=== PATIENT | female | born 2000 | race Caucasian/White ===

== ENCOUNTER 2021-02-14 14:28 | Emergency (ER) | payer MEDICAID ==
[~2021-02-14] VITALS: Ht 172.7 cm; Wt 79.4 kg
--- NOTE | 2021-02-14 14:55 | NUR ---
[id number], PER EMS PT WAS NOTED "ALTERED" BY STAFF. 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 DENIES DRUG USE. STATED, "LAST DRUG TAKEN WAS METH LAST MONTH." PATIENT IS A/OX4, DENIES SOB AND PAIN, C/O GENERALIZED WEAKNESS. PASSED NURSING BEDSIDE SWALLOW, NIH SCORE OF 0. WILL CONTINUE TO MONITOR.
[2021-02-14 15:58] LABS: BASOPHILS # (AUTO) 0.1 /CMM (0.0-0.2); BASOPHILS % (AUTO) 0.8 % (0.0-2.0); EOSINOPHILS % (AUTO) 2.2 % (0.0-6.0); HEMATOCRIT 41 % (33-45); HEMOGLOBIN 13.2 g/dL (11.5-14.8); LYMPHOCYTES # (AUTO) 2.9 /CMM (0.8-4.8); LYMPHOCYTES % (AUTO) 30.3 % (20.0-44.0); MEAN CORPUSCULAR HGB CONC 32 g/dl (31.0-36.0); MEAN CORPUSCULAR VOLUME 89 fL (82-100); MONOCYTES # (AUTO) 0.8 /CMM (0.1-1.30); MONOCYTES % (AUTO) 8.8 % (2.0-12.0); NEUTROPHILS # (AUTO) 5.5 /CMM (1.8-8.9); NEUTROPHILS % (AUTO) 57.9 % (43.0-81.0); PLATELET COUNT (AUTO) 309 /CMM (150-450); RED BLOOD CELL COUNT(AUTO) 4.58 MIL/uL (4.0-5.2); WHITE BLOOD COUNT (AUTO) 9.5 K/uL (4.3-11.0)
--- NOTE | 2021-02-14 16:04 | NUR ---
URINE AND WET MOUNT SENT TO LAB
[2021-02-14 16:11] LABS: BILIRUBIN,URINE NEGATIVE (NEGATIVE); COLOR,URINE YELLOW (YELLOW); LEUKOCYTE ESTERASE ,URINE SMALL (NEGATIVE); NITRITE, URINE NEGATIVE (NEGATIVE); PROTEIN,URINE NEGATIVE (NEGATIVE); UGLUCOSE NEGATIVE (NEGATIVE); UROBILINOGEN,URINE 0.2 EU/dL (0.2)
[2021-02-14 16:19] LABS: BACTERIA,URINE 1+ /HPF (None Seen); RBC,URINE 51-80 /HPF (0-2)
--- NOTE | 2021-02-14 16:35 | NUR ---
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
[2021-02-14 16:36] LABS: ALBUMIN 3.5 g/dL (3.4-5.0); BILIRUBIN,DIRECT 0.1 mg/dL (0.0-0.2); BILIRUBIN,TOTAL 0.3 mg/dL (0.2-1.0); CALCIUM, SERUM 9.3 mg/dL (8.5-10.1); CREATININE 0.7 mg/dL (0.6-1.3); POTASSIUM 3.4 mmol/L (3.5-5.1); TOTAL PROTEIN, SERUM 7.5 g/dL (6.4-8.2)
[2021-02-14] MEDS ORDERED: DOXY100C2 PO (18:03)
[2021-02-14] MEDS ORDERED: DOXYCYCLINE HYCLATE (100 MG) 100 MG TABLET ONE (18:08)
[2021-02-14] MEDS ORDERED: WATER FOR INJECTION,STERILE 10 ML ONE (18:08)
[2021-02-14] MEDS ORDERED: METRONIDAZOLE 500 MG TABLET ONE (18:08)
[2021-02-14] MEDS ORDERED: CEFTRIAXONE 500 MG VIAL ONE (18:08)
--- NOTE | 2021-02-14 18:08 | NUR ---
SPOKE TO MARCELO AT [facility]. 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
[2021-02-14] MEDS ORDERED: LIDOCAINE 0.5% HCL 50 ML VIAL ONE (18:13)
[2021-02-14] MEDS ORDERED: LIDOCAINE /MPF 1% VIAL 5 ML VIAL ONE (18:17)
[2021-02-14] MEDS: CEFTRIAXONE 500 MG VIAL IM ONE (18:20)
[2021-02-14] MEDS: METRONIDAZOLE 500 MG TABLET PO ONE (18:20)
[2021-02-14] MEDS: DOXYCYCLINE HYCLATE (100 MG) 100 MG TABLET PO ONE (18:20)
[2021-02-14 18:42] VITALS: BP 103/50
--- NOTE | 2021-02-14 18:47 | NUR ---
Patient discharged to [facility]hab in stable condition; picked up by Tim from [facility]. Written and verbal after care instructions given. Patient verbalizes understanding of instruction. Pateint left ED in stable condition.
== END 2021-02-14 18:42 ==
LOC: ER 14:36
DX: N89.8 Other specified noninflammatory disorders of vagina (principal); Z79.899 Other long term (current) drug therapy
CPT/HCPCS: 36415; 80048; 80076; 81001; 84703; 85025; 87086; 87210; 87491; 87591; 87806; 96372; 99283; J0696; J3490

== ENCOUNTER 2021-03-31 02:17 | Emergency (ER) | payer MEDICAID ==
[~2021-03-31] VITALS: Ht 167.6 cm; Wt 54.4 kg
[~2021-03-31 02:17] MED LIST: DOXY100C2 PO
--- NOTE | 2021-03-31 02:25 | NUR ---
Pt bibra c/o audible hallucinations. Pt aaox4 breathing evenly and unlabored. Per ems, pt hears voices screaming her name. Pt attached to monitor and pox. Pt given blanket and call light within reach.
[2021-03-31] MEDS ORDERED: OLANZAPINE 10 MG VIAL IM ONE ×2 (02:47→03:00)
--- NOTE | 2021-03-31 03:47 | NUR ---
blood obtained and sent to lab
[2021-03-31 03:49] LABS: BILIRUBIN,URINE NEGATIVE (NEGATIVE); COLOR,URINE YELLOW (YELLOW); LEUKOCYTE ESTERASE ,URINE MODERATE (NEGATIVE); NITRITE, URINE POSITIVE (NEGATIVE); PROTEIN,URINE 30 mg/dl (NEGATIVE); UGLUCOSE NEGATIVE (NEGATIVE); UROBILINOGEN,URINE 0.2 EU/dL (0.2)
[2021-03-31 03:59] LABS: BACTERIA,URINE Many /HPF (None Seen); WBC,URINE 81-100 /HPF (0-3)
[2021-03-31 04:00] LABS: SQUAMOUS EPITHELIAL CELL,UR Moderate /HPF (None Seen)
[2021-03-31 04:06] LABS: BASOPHILS # (AUTO) 0.1 /CMM (0.0-0.2); BASOPHILS % (AUTO) 0.9 % (0.0-2.0); HEMATOCRIT 39 % (33-45); HEMOGLOBIN 13.1 g/dL (11.5-14.8); LYMPHOCYTES # (AUTO) 2.9 /CMM (0.8-4.8); LYMPHOCYTES % (AUTO) 30.7 % (20.0-44.0); MEAN CORPUSCULAR HGB CONC 33 g/dl (31.0-36.0); MEAN CORPUSCULAR VOLUME 87 fL (82-100); MONOCYTES # (AUTO) 0.7 /CMM (0.1-1.30); MONOCYTES % (AUTO) 7.3 % (2.0-12.0); NEUTROPHILS # (AUTO) 5.6 /CMM (1.8-8.9); NEUTROPHILS % (AUTO) 60.1 % (43.0-81.0); PLATELET COUNT (AUTO) 321 /CMM (150-450); RED BLOOD CELL COUNT(AUTO) 4.47 MIL/uL (4.0-5.2); WHITE BLOOD COUNT (AUTO) 9.3 K/uL (4.3-11.0)
[2021-03-31 04:17] LABS: CALCIUM, SERUM 8.9 mg/dL (8.5-10.1); CARBON DIOXIDE 24 mmol/L (21-32); CHLORIDE 106 mmol/L (98-107); CREATININE 0.8 mg/dL (0.6-1.3); GLUCOSE 101 mg/dL (74-106); SODIUM SERUM 141 mmol/L (136-145); UREA NITROGEN, BLOOD 14 mg/dL (7-18)
[2021-03-31 04:23] LABS: ACETAMINOPHEN < 2 ug/ml (10-30); ALANINE AMINOTRANSFERASE 36 U/L (12-78); ALBUMIN 3.7 g/dL (3.4-5.0); ALCOHOL, BLOOD < 3 mg/dL (0-0); ALKALINE PHOSPHATASE 64 U/L (46-116); ASPARTATE AMINOTRANSFERASE 19 U/L (15-37); BILIRUBIN,DIRECT 0.1 mg/dL (0.0-0.2); BILIRUBIN,TOTAL 0.5 mg/dL (0.2-1.0); TOTAL PROTEIN, SERUM 7.1 g/dL (6.4-8.2)
[2021-03-31] MEDS ORDERED: CEPHALEXIN MONOHYDRATE 500 MG CAPSULE PO ONE ×4 (04:30→19:00)
[2021-03-31] MEDS ORDERED: POTASSIUM CHLORIDE 20 MEQ TAB.PRT.SR PO ONE ×2 (05:00→06:09)
--- NOTE | 2021-03-31 05:51 | NUR ---
JOSE PAGED FOR PSYCH EVAL
--- NOTE | 2021-03-31 07:05 | NUR ---
gave report to RUBIO Oseguera for constantin
--- NOTE | 2021-03-31 07:55 | NUR ---
Per report awaiting for [facility]. team .patient asleep but arousable no agitaiopn @ this time no hallucination continue to monitor .
--- NOTE | 2021-03-31 11:30 | NUR ---
Patient asleep but arousable no s/s of discomfort vitals taken and filed .
--- NOTE | 2021-03-31 13:28 | NUR ---
Patient eyes close arousable ,non distress no hallucination ,no agitaion continue to monitor .
--- NOTE | 2021-03-31 15:22 | NUR ---
Patient eyes close arousable no eye contact back to sleep .
--- NOTE | 2021-03-31 18:56 | NUR ---
Technical Assistance Consultant seen her per Madelyn Voluntary admission So clarissa .
--- NOTE | 2021-03-31 19:11 | NUR ---
Transfer care report to Connie
--- NOTE | 2021-03-31 19:30 | NUR ---
SPOKE WITH TORITO FROM [facility]TA[facility], PER TORITO STILL NO TRANSFER INFO AT THIS TIME
--- NOTE | 2021-03-31 20:07 | NUR ---
CALL FROM JOANN AT [facility] INTAKE: PT GOT ACCEPTED AT [facility] [place], [address], BY DR ZUÑIGA. # FOR REPORT: [phone]
--- NOTE | 2021-03-31 20:24 | NUR ---
called [facility] transportation . spoke to eneida to arrange transportation. ref# [id number]
--- NOTE | 2021-03-31 20:35 | NUR ---
[facility] ETA [id number]
--- NOTE | 2021-03-31 20:38 | NUR ---
REPORT GIVEN TO RUBIO PALOMO FROM [facility]
[2021-03-31] MEDS ORDERED: CEPH500C2 PO (21:45)
--- NOTE | 2021-03-31 21:48 | NUR ---
[facility] [address] AT BED SIDE TO CREATIVE SERVICES DESIGNER THE PT. REPORT GIVEN
[2021-03-31 21:54] VITALS: BP 109/52
== END 2021-03-31 21:56 ==
LOC: ER 02:20
DX: F29 Unspecified psychosis not due to a substance or known physiological condition (principal); N30.01 Acute cystitis with hematuria; E87.6 Hypokalemia; B96.20 Unspecified Escherichia coli [E. coli] as the cause of diseases classified elsewhere; Z16.11 Resistance to penicillins; Z20.822 Contact with and (suspected) exposure to COVID-19
CPT/HCPCS: 36415; 80048; 80076; 80143; 80307; 80320; 81001; 84703; 85025; 87077; 87086; 87186; 87426; 96372; 99285; C9803; J3490; G0480